=== PATIENT | male | born 1955 | race Hispanic/Latino ===

== ENCOUNTER 2019-11-25 07:37 | Day surgery (SDC) | payer OTHER ==
[2019-11-20 11:43] LABS: BASOPHILS % (AUTO) 0.5 % (0.0-5.0); EOSINOPHILS % (AUTO) 0.5 % (0.0-8.0); HEMATOCRIT 38.5 % (42-54); LYMPHOCYTES % (AUTO) 12.2 % (21.0-51.0); MEAN CORPUSCULAR HEMOGLOBIN 30.2 pg (27.0-33.0); MEAN CORPUSCULAR VOLUME 88.7 fL (79-99); NEUTROPHILS % (AUTO) 80.6 % (40.0-77.0); PLATELET COUNT (AUTO) 192 K/uL (130-400); RED BLOOD CELL COUNT(AUTO) 4.34 MIL/uL (4.50-6.20); RED CELL DISTRIBUTION WIDTH 13.7 % (11.0-15.5); WHITE BLOOD COUNT (AUTO) 8.4 K/uL (4.8-10.8)
[2019-11-20 11:58] VITALS: BP 127/78
[2019-11-20 12:04] LABS: POTASSIUM 4.5 mmol/L (3.5-5.1)
[~2019-11-25] VITALS: Ht 165.1 cm; Wt 64.3 kg
[2019-11-25] VITALS (13 sets, daily range): BP systolic 135–155; BP diastolic 74–90
[~2019-11-25 07:37] MED LIST: MVI PO
[2019-11-25] MEDS ORDERED: CEFAZOLIN SODIUM 1 GM VIAL ONE (08:26)
[2019-11-25] MEDS: LACTATED RINGERS 1000ML 1,000 ML IV SCH ×2 (08:35→10:23)
[2019-11-25] MEDS ORDERED: ONDANSETRON HCL 4 MG/2 ML VIAL ONE (09:58)
[2019-11-25] MEDS ORDERED: LIDOCAINE PF 2% 5ML ABBOJECT ONE ×2 (09:58→09:59)
[2019-11-25] MEDS ORDERED: NEOSTIGMINE 5MG/5ML SYR IV ONE (09:58)
[2019-11-25] MEDS ORDERED: GLYCOPYRROLATE 1 MG/5 ML SYRINGE ONE (09:58)
[2019-11-25] MEDS ORDERED: MIDAZOLAM HCL 1 MG/ML 2ML VIAL ONE (09:58)
[2019-11-25] MEDS ORDERED: DEXAMETHASONE SOD PHOSPHATE 10MG/ML 1ML VIAL ONE (09:58)
[2019-11-25] MEDS ORDERED: PROPOFOL 10 MG/ML 20ML VIAL IV ONE (09:58)
[2019-11-25] MEDS ORDERED: SUCCINYLCHOLINE 200MG/10ML SYR ONE (09:58)
[2019-11-25] MEDS ORDERED: ROCURONIUM 10MG/1ML SYR 10 MG/ML ML ONE (09:59)
[2019-11-25] MEDS ORDERED: FENTANYL CITRATE PF 50 MCG/1 ML 2ML VIAL ONE (09:59)
[2019-11-25] MEDS ORDERED: EPHEDRINE SULFATE 50 MG/ML AMPULE ONE (10:10)
[2019-11-25] MEDS ORDERED: BUPIVACAINE/PF 0.25% 30ML VIAL IJ ONE ×2 (10:10→10:50)
[2019-11-25] MEDS ORDERED: MEPERIDINE-PF 25 MG/ML SYG ONE (11:31)
--- NOTE | 2019-11-25 12:50 | NUR ---
POST RECEIVED PT FROM PACU, S/P VERONICA INGUINAL HERNIA REPAIRS. DRESSING BILATERAL DRY AND INTACT, PT AWAKE AND ALERT, DENIES ANY PAIN OR DISCOMFORTS. PLAN OF CARE DISCUSS WITH PATIENT/ BROTHER. CALL LIGHT WITHIN REACH
--- NOTE | 2019-11-25 13:30 | NUR ---
dc pt dc home via wc,no distress noted. pt denied any pain or discomforts. pt accompanied by his brother. dressing to site dry and intact
== END 2019-11-25 13:30 | disposition home or self-care (01) ==
LOC: DAH 07:37
PROVIDERS: ATTEND Surgery
DX: K40.20 Bilateral inguinal hernia, without obstruction or gangrene, not specified as recurrent (principal); N40.0 Benign prostatic hyperplasia without lower urinary tract symptoms; E78.2 Mixed hyperlipidemia; Z86.010 Personal history of colon polyps; Z98.890 Other specified postprocedural states; Z79.899 Other long term (current) drug therapy
CPT/HCPCS: 36415; 49505; 80048; 85025; 96374; A4215; A4222; A4223; A4450; A4452; A4663; A4930; A6260; C1781; J0330; J0690; J1100; J2001 ×2; J2175; J2250; J2405; J2704; J2710; J3010; J3490 ×4; J7030; J7120

== ENCOUNTER 2021-06-23 08:55 | Day surgery (SDC) | payer OTHER ==
[2021-06-17 12:23] LABS: BASOPHILS % (AUTO) 0.5 % (0.0-5.0); EOSINOPHILS % (AUTO) 0.7 % (0.0-8.0); HEMATOCRIT 38.1 % (42-54); LYMPHOCYTES % (AUTO) 17.6 % (21.0-51.0); MEAN CORPUSCULAR HEMOGLOBIN 30.9 pg (27.0-33.0); MEAN CORPUSCULAR HGB CONC 33.6 g/dL (32.0-36.0); NEUTROPHILS % (AUTO) 72.9 % (40.0-77.0); PLATELET COUNT (AUTO) 151 K/uL (130-400); RED BLOOD CELL COUNT(AUTO) 4.14 MIL/uL (4.50-6.20); RED CELL DISTRIBUTION WIDTH 13.5 % (11.0-15.5); WHITE BLOOD COUNT (AUTO) 6.1 K/uL (4.8-10.8)
[2021-06-17 12:24] LABS: APPEARANCE,URINE Clear (CLEAR); BILIRUBIN,URINE Negative (NEGATIVE); COLOR,URINE Yellow (YELLOW); GLUCOSE, URINE (UA) Negative (NEGATIVE); KETONES,URINE Negative (NEGATIVE); LEUKOCYTE ESTERASE ,URINE Negative (NEGATIVE); NITRATE,URINE Negative (NEGATIVE); OCCULT BLOOD,URINE Negative (NEGATIVE); PH,URINE 6.5 (5.0-8.0); PROTEIN,URINE Negative (NEGATIVE)
[2021-06-17 12:34] LABS: CREATININE 0.8 mg/dL (0.5-1.5); POTASSIUM 4.3 mmol/L (3.5-5.1)
[2021-06-17 12:36] LABS: INR 1.08 (0.85-1.15); PROTHROMBIN TIME 11.7 SEC (9.6-11.6)
[2021-06-17 12:37] LABS: PARTIAL THROMBOPLASTIN TIME 27.4 SEC (26.3-35.5)
[2021-06-19 11:49] VITALS: BP 139/67
[2021-06-23] VITALS (16 sets, daily range): BP systolic 116–136; BP diastolic 64–85
[~2021-06-23] VITALS: Ht 165.1 cm; Wt 56.9 kg
[~2021-06-23 08:55] MED LIST changes: +CEFTRIAXONE 1G VIAL IVP ONE; +GENTAMICIN 80 MG/NS 100 ML PB 100 ML IV SCH; +LEVO500P29 IV; -MVI PO; +ROSU10TA28 PO
[2021-06-23] MEDS ORDERED: DEXAMETHASONE SOD PHOSPHATE 10MG/ML 1ML VIAL ONE (10:18)
[2021-06-23] MEDS ORDERED: LIDOCAINE PF 100MG/5ML (2%) SYRINGE 5ML ONE (10:18)
[2021-06-23] MEDS ORDERED: ONDANSETRON 4MG INJ ONE (10:18)
[2021-06-23] MEDS ORDERED: GLYCOPYRROLATE 1 MG/5 ML SYRINGE ONE (10:18)
[2021-06-23] MEDS ORDERED: SUCCINYLCHOLINE CHLORIDE 20 MG/ML 10 ML VIAL ONE (10:18)
[2021-06-23] MEDS ORDERED: PROPOFOL 10 MG/ML 20ML VIAL IV ONE (10:18)
[2021-06-23] MEDS ORDERED: MIDAZOLAM HCL 1 MG/ML 2ML VIAL ONE (10:18)
[2021-06-23] MEDS ORDERED: NEOSTIGMINE 5MG/5ML SYR IV ONE (10:19)
[2021-06-23] MEDS ORDERED: FENTANYL CITRATE PF 50 MCG/1 ML 2ML VIAL ONE (10:19)
[2021-06-23] MEDS ORDERED: ROCURONIUM 10MG/1ML SYR 10 MG/ML ML ONE (10:19)
[2021-06-23] MEDS ORDERED: CEFTRIAXONE 1G VIAL ONE (10:42)
[2021-06-23] MEDS ORDERED: GENTAMICIN 80 MG/NS 100 ML PB 100 ML IV ONE (10:42)
[2021-06-23] MEDS ORDERED: LACTATED RINGERS 1000ML 1,000 ML IV ONE (10:42)
[2021-06-23] MEDS ORDERED: EPHEDRINE SULFATE 50 MG/ML AMPULE ONE (11:38)
== END 2021-06-23 14:55 | disposition home or self-care (01) ==
LOC: DAH 08:55
PROVIDERS: ATTEND Urology
DX: N40.1 Benign prostatic hyperplasia with lower urinary tract symptoms (principal); Z20.822 Contact with and (suspected) exposure to COVID-19; N32.0 Bladder-neck obstruction; N39.41 Urge incontinence; N32.89 Other specified disorders of bladder; Z79.01 Long term (current) use of anticoagulants
CPT/HCPCS: 36415; 52648; 71045; 80048; 81003; 85025; 85610; 85730; 87088; 87426; 93005; A4215; A4221; A4223; A4354; A4358; A4600; A4663; C1758; J0330; J0696; J1100; J1580; J2001; J2250; J2405; J2704; J2710; J3010; J3490 ×2; J7030; J7120

== ENCOUNTER 2022-06-19 20:30 | Emergency (ER) | payer OTHER ==
[~2022-06-19] VITALS: Ht 165.1 cm; Wt 49.4 kg
[~2022-06-19 20:30] MED LIST changes: -CEFTRIAXONE 1G VIAL IVP ONE; -GENTAMICIN 80 MG/NS 100 ML PB 100 ML IV SCH
[2022-06-19] MEDS ORDERED: FAMOTIDINE 20MG VIAL IV ONE ×2 (21:00→21:22)
[2022-06-19] MEDS ORDERED: 0.9% NACL 500ML IV.SOLN 500 ML IV ONE ×2 (21:00→21:22)
[2022-06-19] MEDS ORDERED: ONDANSETRON 4MG INJ IVP ONE (21:00)
[2022-06-19 21:12] LABS: BASOPHILS % (AUTO) 0.5 % (0.0-5.0); EOSINOPHILS % (AUTO) 0.4 % (0.0-8.0); HEMATOCRIT 37.7 % (42-54); LYMPHOCYTES % (AUTO) 20.4 % (21.0-51.0); MEAN CORPUSCULAR HEMOGLOBIN 30.5 pg (27.0-33.0); MEAN CORPUSCULAR VOLUME 89.8 fL (79-99); MONOCYTES % (AUTO) 8.2 % (3.0-13.0); NEUTROPHILS % (AUTO) 70.3 % (40.0-77.0); PLATELET COUNT (AUTO) 177 K/uL (130-400); RED CELL DISTRIBUTION WIDTH 14.3 % (11.0-15.5); WHITE BLOOD COUNT (AUTO) 5.6 K/uL (4.8-10.8)
[2022-06-19 21:22] LABS: POTASSIUM 3.6 mmol/L (3.5-5.1)
[2022-06-19] MEDS ORDERED: ONDANSETRON 4MG INJ ONE (21:22)
[2022-06-19 21:24] LABS: APPEARANCE,URINE CLEAR (CLEAR); BILIRUBIN,URINE NEGATIVE (NEGATIVE); COLOR,URINE YELLOW (YELLOW); GLUCOSE, URINE (UA) NEGATIVE (NEGATIVE); KETONES,URINE NEGATIVE (NEGATIVE); LEUKOCYTE ESTERASE ,URINE TRACE (NEGATIVE); NITRATE,URINE NEGATIVE (NEGATIVE); OCCULT BLOOD,URINE NEGATIVE (NEGATIVE); PROTEIN,URINE NEGATIVE (NEGATIVE); UROBILINOGEN,URINE 0.2 mg/dL (0.2-1.0)
[2022-06-19 21:26] LABS: ALBUMIN 3.7 g/dL (3.5-5.0); TOTAL PROTEIN, SERUM 6.9 g/dL (6.0-8.3)
[2022-06-19 21:29] LABS: RBC,URINE 0-1 /HPF (0-1)
[2022-06-19 21:30] LABS: BACTERIA,URINE Rare /HPF (None Seen)
[2022-06-19 21:31] LABS: MUCUS,URINE Few LPF (None Seen); SQUAMOUS EPITHELIAL CELL,UR Rare /HPF (0-2)
[2022-06-19] MEDS ORDERED: IOHEXOL 350 MG/ML 100ML INFUS..BTL IV ONE (21:37)
[2022-06-19] MEDS ORDERED: CEFTRIAXONE 1G VIAL IVP ONE (22:00)
[2022-06-19] MEDS ORDERED: CEPH500B PO (22:26)
[2022-06-19] MEDS ORDERED: BACI1CAP6 PO (22:26)
[2022-06-19 22:37] VITALS: BP 120/64
== END 2022-06-19 22:48 | disposition home or self-care (01) ==
LOC: EDH 20:30
DX: N39.0 Urinary tract infection, site not specified (principal); R19.7 Diarrhea, unspecified; E78.00 Pure hypercholesterolemia, unspecified
CPT/HCPCS: 99285; 74177; 96374; 96375; 84484; 80053; 83690; 85025; 87088; 81001; 36415; 93005; J7040; J3490; J0696; J2405; Q9967

== ENCOUNTER → 2024-10-08 | Outpatient (CLI) | payer OTHER, MEDICARE ==
[~2024-10-08] MED LIST changes: +CYPR4TAB46 PO; +ESCI-8 PO; -LEVO500P29 IV; +MIRT7.5T11 PO; -ROSU10TA28 PO; +ROSU10TA72 PO
--- NOTE | 2024-10-08 19:57 | HMCIMG ---
US ABDOMINAL RUQ\E\LTD HISTORY: Loss of appetite COMPARISON: None TECHNIQUE: Right upper quadrant abdominal ultrasound study was performed. FINDINGS: Liver measures 10.8 cm. The visualized portion of the pancreas is within normal limits. Liver is echogenic consistent with liver parenchymal disease. No gallstone is seen. Common duct measures 2 mm. No evidence of gallbladder wall thickening is seen. Right kidney measures 9.8 x 3.5 x 4.6 cm. No hydronephrosis is seen of the right kidney. IMPRESSION: 1. No gallstones or ductal dilatation is seen. 2. No hydronephrosis is seen.
== END | disposition home or self-care (01) ==
LOC: RAH 09:45
PROVIDERS: ATTEND Internal Medicine
DX: R10.13 Epigastric pain (principal); R63.0 Anorexia
CPT/HCPCS: 76705